=== PATIENT | male | born 1965 | race Caucasian/White ===

== ENCOUNTER 2017-02-15 13:10 | Emergency (ER) | payer OTHER ==
--- NOTE | 2017-02-15 13:36 | DIAGNOSTIC IMAGING REPORT ---
PROCEDURE: CT HEAD WITHOUT CONTRAST INDICATION: Dizziness and right-sided numbness. TECHNIQUE: Noncontrast axial images with sagittal and coronal reformations. COMPARISON: None. FINDINGS: Sulci, ventricular system, and brain parenchyma are normal. No evidence of acute intracranial process. Minor right ethmoid sinus disease. Mastoids are clear. IMPRESSION: 1. Negative non-enhanced head CT. 2. Findings discussed with Dr. Robles at 01:[address] Time
--- NOTE | 2017-02-15 13:36 | DIAGNOSTIC IMAGING REPORT ---
PROCEDURE: CT HEAD WITHOUT CONTRAST INDICATION: Dizziness and right-sided numbness. TECHNIQUE: Noncontrast axial images with sagittal and coronal reformations. COMPARISON: None. FINDINGS: Sulci, ventricular system, and brain parenchyma are normal. No evidence of acute intracranial process. Minor right ethmoid sinus disease. Mastoids are clear. IMPRESSION: 1. Negative non-enhanced head CT. 2. Findings discussed with Dr. Robles at 01:35 p.m.[facility] Time
--- NOTE | 2017-02-15 13:53 | DIAGNOSTIC IMAGING REPORT ---
PROCEDURE: XR CHEST 1 VIEW INDICATION: NEAR SYNCOPE TECHNIQUE: Portable AP view 01:42 p.m. COMPARISON: None. FINDINGS: Lungs are clear. Heart and mediastinum are normal. Thorax is normal. IMPRESSION: 1. Negative chest.
--- NOTE | 2017-02-15 15:18 | DIAGNOSTIC IMAGING REPORT ---
PROCEDURE: US BILATERAL CAROTID DOPPLER INDICATION: STROKE/CVA TECHNIQUE: Color Doppler duplex imaging of the carotid and vertebral vessels. COMPARISON: None. FINDINGS: Right carotid system: No significant stenosis visualized. The waveforms are normal. Left carotid system: No significant stenosis visualized. The waveforms are normal. Vertebral System: Antegrade vertebral artery flow bilaterally. Right common carotid artery peak systolic velocity 108 cm/second. Right internal carotid artery peak systolic velocity 62 cm/second. Right external carotid artery peak systolic velocity 144 cm/second. Right yaicbbjq-ty-brmxnc carotid artery ratio 0.57 Right vertebral artery peak systolic velocity 63 cm/second. Left common carotid artery peak systolic velocity 114 cm/second. Left internal carotid artery peak systolic velocity 89 cm/second. Left external carotid artery peak systolic velocity 131 cm/second. Left utevaedp-hp-csctba carotid artery ratio 0.78 Left vertebral artery peak systolic velocity 77 cm/second. IMPRESSION: 1. No hemodynamically significant stenosis in either carotid system. 2. Antegrade vertebral artery flow bilaterally. Velocity criteria are extrapolated from diameter data as defined by the Society of Radiologists in Ultrasound Consensus Conference, Radiology 2003; 229; 340-346.
--- NOTE | 2017-02-15 15:18 | DIAGNOSTIC IMAGING REPORT ---
PROCEDURE: US BILATERAL CAROTID DOPPLER INDICATION: STROKE/CVA TECHNIQUE: Color Doppler duplex imaging of the carotid and vertebral vessels. COMPARISON: None. FINDINGS: Right carotid system: No significant stenosis visualized. The waveforms are normal. Left carotid system: No significant stenosis visualized. The waveforms are normal. Vertebral System: Antegrade vertebral artery flow bilaterally. Right common carotid artery peak systolic velocity 108 cm/second. Right internal carotid artery peak systolic velocity 62 cm/second. Right external carotid artery peak systolic velocity 144 cm/second. Right taelkrux-kj-wesvqo carotid artery ratio 0.57 Right vertebral artery peak systolic velocity 63 cm/second. Left common carotid artery peak systolic velocity 114 cm/second. Left internal carotid artery peak systolic velocity 89 cm/second. Left external carotid artery peak systolic velocity 131 cm/second. Left glfksrld-ee-gjfroj carotid artery ratio 0.78 Left vertebral artery peak systolic velocity 77 cm/second. IMPRESSION: 1. No hemodynamically significant stenosis in either carotid system. 2. Antegrade vertebral artery flow bilaterally. Velocity criteria are extrapolated from diameter data as defined by the Society of Radiologists in Ultrasound Consensus Conference, Radiology 2003; 229; 340-346.
--- NOTE | 2017-02-15 15:59 | DIAGNOSTIC IMAGING REPORT ---
PROCEDURE: CTA HEAD AND NECK INDICATION: Dizziness and right-sided numbness. TECHNIQUE: 80 ml of Isovue 370 injected intravenously and axial images were obtained from the vertex through the upper mediastinum with 3D sagittal and coronal MIP reconstructions. COMPARISON: Head CT carotid duplex ultrasound 02/15/2017. FINDINGS: AORTIC ARCH: Normal. No evidence of atherosclerosis. RIGHT CAROTID SYSTEM: Normal. No evidence of atherosclerosis or stenosis. LEFT CAROTID SYSTEM: Normal. No evidence of atherosclerosis or stenosis. VERTEBROBASILAR SYSTEM: Normal. No evidence of atherosclerosis or stenosis. INTRACRANIAL ANTERIOR CIRCULATION: Normal. No evidence of aneurysm, stenosis or occlusion. INTRACRANIAL POSTERIOR CIRCULATION: Normal. No evidence of aneurysm, stenosis or occlusion. IMPRESSION: 1. Normal study. No evidence of atherosclerosis, stenosis, occlusion or aneurysm 2. Results discussed with Dr. Robles All CT scans at this facility use dose modulation, iterative reconstruction, and/or weight-based dosing when appropriate to reduce radiation dose to as low as reasonably achievable.
--- NOTE | 2017-02-15 16:11 | ED ORDER SUMMARY ---
..... Patient: CHERRIE MA OrderSheet [facility] VisitID: [id number] [address] [place] [address] 51y, M Registration Date/Time: 02/15/2017 ORDER SHEET Weight: 72.5 kg (stated) Allergies: None GENERAL ORDERS: CT Head wo Cont Urgent (13:02/15/2017 Darío Leblanc verbal order read back to Garret NOGUEIRA) (Ack 13:27 Anita) (13:40 MCook R.N.) Complaint Investigations Officer (Continuous) (13:02/15/2017 Garret NOGUEIRA) (13:40 MCook R.N.) Chest 1V Urgent (13:02/15/2017 Garret NOGUEIRA) (Ack 13:27 Anita) (13:40 MCook R.N.) Cardiac Panel Stat (13:02/15/2017 Garret NOGUEIRA) (Ack 13:27 Anita) (13:40 MCook R.N.) BNP Urgent (13:02/15/2017 Garret NOGUEIRA) (Ack 13:27 Anita) (13:40 MCook R.N.) D-Dimer Urgent (13:02/15/2017 Garret NOGUEIRA) (Ack 13:27 Ainta) (13:40 MCook R.N.) TSH Urgent (13:02/15/2017 Garret NOGUEIRA) (Ack 13:27 Anita) (13:40 MCook R.N.) UA-Culture if indicated Urgent (13:02/15/2017 Garret NOGUEIRA) (Ack 13:27 Anita) (15:28 MCook R.N.) Urine Drug Screen Urgent (13:02/15/2017 Garret NOGUEIRA) (Ack 13:27 Anita) (15:28 MCook R.N.) CRP Urgent (13:02/15/2017 Garret NOGUEIRA) (Ack 13:27 Anita) (13:40 MCook R.N.) ESR Urgent (13:25 02/15/2017 Garret NOGUEIRA) (Ack 13:27 BOZENAoerner) (13:40 MCook R.N.) PCT (Procalcitonin) Urgent (13:25 02/15/2017 Garret NOGUEIRA) (Ack 13:27 BOZENAoerner) (13:40 MCook R.N.) Oxygen (2 L/min) (NC) (13:25 02/15/2017 Garret NOGUEIRA) (13:40 MCook R.N.) Pulse oximeter (13:25 02/15/2017 Garret NOGUEIRA) (13:40 MCook R.N.) EKG - ER Stat (13:25 02/15/2017 Garret NOGUEIRA) (13:40 MCook R.N.) - (orthostatic BP/P) (13:36 02/15/2017 Garret NOGUEIRA) (14:01 MCook R.N.) US Carotid Doppler Bilat Urgent (14:00 02/15/2017 Garret NOGUEIRA) (Ack 14:11 BOZENAoerwaqar) (14:43 MCook R.N.) CTA Head w Cont (No) (normal. ) Urgent (15:12 02/15/2017 Garret NOGUEIRA) (Ack 15:23 KHoerner) (Cancelled: Wrong Wjvkqsy25:27 oerner) CTA Head and Neck (No) (N/A) Urgent (15:27 02/15/2017 BOZENAoerner verbal order read back to Garret NOGUEIRA) (Ack 15:29 MCook R.N.) (15:34 KHoerner) MEDICATION ORDERS: Aspirin PO 325 mg (Do not crush or chew, NOW) (16:13 02/15/2017 Garret NOGUEIRA) (Ack 16:16 MCook R.N.) (16:41 MCook R.N.) IV FLUIDS: IV Saline Lock (13:02/15/2017 Garret NOGUEIRA) (13:40 MCook R.N.) ORDER SHEET NOTES: [Electronically signed by Armond Campa R.N. (18:01 02/15/2017)] [Electronically signed by Corey Robles MD (11:40 02/16/2017)] [Electronically locked/signed by Armond Campa R.N. (18:01 02/15/2017)]
--- NOTE | 2017-02-15 16:11 | ED CLINICAL REPORT ---
Clinical Report - Physicians/Mid Levels [facility] [address] [place] [address] 02/15/2017 13:14 [id number] Time Seen: 13:24 Feb 15 2017. Arrived- By private vehicle. Historian- patient. CPT: ER phys charges level 5 plus (#[id number]). EKG interpretation (#[id number]). HISTORY OF PRESENT ILLNESS Chief Complaint: PARESTHESIA and IMPAIRED SPEECH. Right face and arm numbness. 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 This started today and is still present (better). The patient has had new onset of numbness of the right face (mild) and right arm (mild). No weakness or tingling. He has had difficulty with speech (wifer reported speech problem while he was on the phone with her.). At its maximum deficit described as mild. When seen in the E.D., it was almost gone. No dizziness or altered mental status. Usually is alert and oriented X3 and has normal mobility. Similar symptoms previously: Milder. Diagnosis: (Dizziness). Recent medical care: Not recently seen/assessed. REVIEW OF SYSTEMS No fever, headache, head injury, chest pain or difficulty breathing. No cough, sputum production, sore throat, abdominal pain or nausea. No diarrhea, black stools, difficulty with urination, skin rash or vomiting. No photophobia, nasal congestion, weakness, diabetic symptoms or easy bruising. No difficulty walking. All systems otherwise negative, except as recorded above. PAST HISTORY ( Corneal Foreign Body. Immunizations.). No history of stroke or seizure. Medications: None. Allergies: None. SOCIAL HISTORY Never smoker. No alcohol use or drug use. ADDITIONAL NOTES The nursing notes have been reviewed. PHYSICAL EXAM Vital Signs: 02/15/2017 13:24 BP: 173/78. HR: 95. RR: 18. O2 saturation: 95%. Temp: 97.7 F. Pain level now: 0/10. Appearance: Alert. No acute distress. Head: Head atraumatic. Eyes: Pupils equal, round and reactive to light. ENT: Normal ENT inspection. Airway intact. Pharynx normal. Neck: Normal inspection. Neck supple. No meningeal signs or carotid bruit. CVS: Normal heart rate and rhythm. Heart sounds normal. Pulses normal. No cardiac murmur. Respiratory: No respiratory distress. Breath sounds normal. Abdomen: Soft and nontender. Back: Normal inspection. Skin: Skin warm. Normal skin color. No rash. Extremities: Extremities exhibit normal ROM. No lower extremity edema. Neuro: Alert. Oriented X 3. Mood/affect normal. Speech normal. Cranial nerves normal (as tested). No cerebellar findings. No motor deficit. No sensory deficit. Reflexes normal. NIH Stroke Scale: score 0. Level of Consciousness: alert (0). LOC Questions: both (0). LOC Commands: both (0). Best gaze: normal (0). Visual field loss: none (0). Facial palsy: normal (0). Motor arm: no drift right arm (0) and no drift left arm (0). Motor leg: no drift right leg (0) and no drift left leg (0). Limb ataxia: none (0). Sensory loss: none (0). Aphasia: none (0). Dysarthria: normal (0). Extinction and inattention: none (0). LABS, X-RAYS, AND EKG EKG: Normal EKG. CT Head: No acute disease. Laboratory Tests: UA-Culture if indicated: (ANDRIA: 02/15/2017 15:20) ( MsgRcvd 02/15/2017 15:36) Final results Test Result Flag Units (Reference) URINE COLOR YELLOW URINE APPEARANCE CLEAR URINE GLUCOSE NEGATIVE (NEGATIVE) URINE BILIRUBIN NEGATIVE (NEGATIVE) URINE KETONE 1+ (NEGATIVE) URINE SPECIFIC GRAVITY <= 1.005 L (1.010-1.030) URINE PH 6.0 (5.0-8.0) URINE PROTEIN NEGATIVE (NEGATIVE) URINE UROBILINOGEN 0.2 EU/dL (0.2-1.0) URINE NITRITE NEGATIVE (NEGATIVE) URINE BLOOD NEGATIVE (NEGATIVE) URINE LEUK ESTERASE NEGATIVE (NEGATIVE) URINE RBC NONE SEEN rbc/hpf (0-1) URINE WBC NONE SEEN wbc/hpf (0-1) URINE EPITHELIAL CELLS NONE SEEN EPI/hpf (0-5) URINE BACTERIA NONE SEEN (NONE SEEN) URINE COMMENT CULT NOT INDICATED URINE CULTURES ARE SET-UP BASED ON THE FOLLOWING CRITERIA:POSITIVE NITRITEPOSITIVE LEUKOCYTE ESTERASEGREATER THAN 10 WHITE BLOOD CELLSMODERATE (2+) OR GREATER BACTERIA CBC w Diff: (ANDRIA: 02/15/2017 13:20) ( [facility]57[facility] Final results Test Result Flag Units (Reference) WHITE BLOOD COUNT 9.6 K/uL (4.5-11.5) RED BLOOD COUNT 5.01 M/uL (4.50-5.90) HEMOGLOBIN 15.1 gm/dL (13.5-17.5) HEMATOCRIT 44.6 % (41.0-53.0) MEAN CELL VOLUME 89 fL (80-100) MEAN CORPUSCULAR HGB 30 pg (26-34) MEAN CORPUSCULAR HGB CONC 34 g/dL (31-37) RED CELL DISTRIBUTION WIDTH 13.1 % (11.6-14.8) PLATELET COUNT 281 K/uL (150-400) NEUTROPHIL % 58.8 % (50-75) LYMPH % 32.2 % (25-40) MONO % 7.1 % (3-14) EOSINOPHIL % 1.4 % (0-4) BASOPHIL % 0.5 % (0-2) SED RATE WESTERGREN 1 mm/hr (0-20) [id number]: (ANDRIA: 02/15/2017 13:20) ( [facility] 02/15/2017 13:51) Final results Test Result Flag Units (Reference) D-DIMER QUANTITATIVE < 0.27 L ug/mLFEU (0.27-0.52) The primary value of this quantitative assay relates toits negative predictive value (i.e. exclusion) of pulmonaryembolism/deep vein thrombosis/DIC.Elevated levels of d-dimer may also occur with:, age, cancer, inflammation, liver disease,post-op, infection, hematoma, coronary disease, peripheralarteriopathy, bleeding disorders and thrombolytic treatment.Results should be correlated with other clinical andradiological data.Testing Methodology: Latex Immunoassay Urine Drug Screen: (ANDRIA: 02/15/2017 15:20) ( [facility] 02/15/2017 15:39) Final results Test Result Flag Units (Reference) AMPHETAMINE/METHAMPHETAMINE NEGATIVE (NEGATIVE) BARBITURATE NEGATIVE (NEGATIVE) BENZODIAZEPINE NEGATIVE (NEGATIVE) CANNABINOID NEGATIVE (NEGATIVE) COCAINE NEGATIVE (NEGATIVE) ECSTASY NEGATIVE (NEGATIVE) METHADONE NEGATIVE (NEGATIVE) OPIATE NEGATIVE (NEGATIVE) The urine drug screen is a qualitative screening test fordrug overdose and abuse. All screen results should beconsidered as presumptive.Drugs screened for are as follows:BenzodiazepinesCocaineAmphetamines/MetamphetaminesTHC (Tetrahydrocannabinol)OpiatesBarbituratesEcstasyMethadonePositive results are unconfirmed. For confirmation, notifythe lab for the specimen to be sent to the reference lab.All confirmations must be performed by a differentmethodology.The ingestion of natural herbal and plant productscontaining Ephedra/Ephedra metabolites can produce in urineone or more substances capable of cross reacting withamphetamine/methamphetamine immunoassays. These testsprovide a preliminary result only. A more specificalternative chemical method must be used to obtain aconfirmed analytical result. BNP: (ANDRIA: 02/15/2017 13:20) ( [facility] 02/15/2017 13:58) Final results Test Result Flag Units (Reference) B-TYPE NATRIURETIC PEPTIDE 19.3 pg/ml (5-100) [id number]: (ANDRIA: 02/15/2017 13:20) ( [facility] 02/15/2017 14:07) Final results Test Result Flag Units (Reference) PROCALCITONIN <0.5 ng/mL (0-0.5) PCT Concentration: Interpretation : Risk/option for action PCT <=0.5 ng/mL : Systemic : Low risk forinfection(sepsis): progression to severeis not likely. : systemic infection.Local bacterial : CAUTION-PCT levelsinfection is : below 0.5 ng/mL do notpossible. : exclude an infection,because localizedinfections (withoutsystemic signs) may beassociated with suchlow levels. If PCT ismeasured very earlyafter a bacterialchallenge (usually <6hours), these valuesmay still be low. Inthis case PCT shouldbe re-assessed 6-24hours later. PCT >0.5 and : Systemic infection: Moderate risk for<= 2 ng/mL : (sepsis) is : progression to severepossible, but : systemic infection.other conditions : The patient should beare known to : closely monitoredelevate PCT. : both clinically andby re-assessing PCTwithin 6-24 hours. PCT > 2 ng/mL : Systemic infection: High risk for(sepsis) is likely: progression to severeunless other : systemic infection.causes are known. : PCT >= 10 ng/mL : Important systemic: High likelihood ofinflammatory : severe sepsis orresponse, almost : septic shock.exclusively due to:severe bacterial :sepsis or septic :shock. : CHEM 13 PANEL: (ANDRIA: 02/15/2017 13:20) ( MsgRcvd 02/15/2017 14:39) Final results Test Result Flag Units (Reference) GLUCOSE 125 H mg/dL (70-110) BUN 14 mg/dL (7-18) CREATININE 1.1 mg/dL (0.6-1.3) Estimated GFR >60 mL/min Estimated GFR- >60 mL/min Note: Persistent reduction over 3 months in eGFR<60 mL/min/1.73 m2 defines CKD. Patients with eGFR values>=60 mL/min/1.73 m2 may also have CKD if evidence ofpersistent proteinuria. Additional information may be foundat www.kidney.org. SODIUM 135 L mmol/L (136-145) POTASSIUM 3.2 L mmol/L (3.5-5.1) CHLORIDE 100 mmol/L (98-107) CARBON DIOXIDE 24 mmol/L (21-32) CALCIUM 8.5 mg/dL (8.5-10.1) TOTAL PROTEIN 7.2 g/dL (6.4-8.2) ALBUMIN 4.1 g/dL (3.3-5.0) BILIRUBIN, TOTAL 1.0 mg/dL (0.0-1.0) ALKALINE PHOSPHATASE 63 U/L (46-116) AST (SGOT) 23 U/L (15-37) ALT (SGPT) 30 U/L (12-78) MAGNESIUM 1.7 L mg/dL (1.8-2.4) CPK 175 U/L (24-260) TROPONIN I <0.05 ng/mL (0.00-1.5) TROPONIN REFERENCE RANGE:<0.1 NEGATIVE0.1-1.5 INDETERMINANT>1.5 POSITIVE THYROID STIMULATING HORMONE 2.541 uIU/mL (0.34-3.74) C-REACTIVE PROTEIN < 0.2 mg/dL (0.0-0.9) . Note - Tests: (Carotid doppler negative. CTA head and neck: Normal exam .). PROGRESS AND PROCEDURES Course of Care: NO neurological deficit on exam and patient states that symptoms have resolved. agrees. NO symptoms while in the ER. Total duration of symptoms was estimated at 2 hours. Pt has no hx of similar symptoms in the past. Discussed probability of recurrent TIA/CVA. Pt will start an 325 mg aspirin per day. Wants to follow up as out patient for further w/u. Patient/family counseled. Disposition: Discharged. Condition: stable and improved. 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 INSTRUCTIONS No strenuous activity. Rest. Do not work for three days until better. (Aspirin 325 mg a day.). Warnings: Further evaluation is necessary. GENERAL WARNINGS: Return or contact your physician immediately if your condition worsens or changes unexpectedly, if not improving as expected, or if other problems arise. Follow-up: Return to the emergency department If symptoms return. Follow up with your doctor in two days. Call for the next available appointment. Understanding of the discharge instructions verbalized by patient and family. Discharge instructions reviewed with and understanding was verbalized by spouse. (Electronically signed by Corey Robles MD 02/16/2017 11:40)
--- NOTE | 2017-02-15 16:11 | ED NURSING NOTES ---
Clinical Report - Nurses [facility] [address] [place] [address] 02/15/2017 13:14 [id number] Triage time 13:Feb 15 2017. Acuity: LEVEL 2. Chief Complaint: DIZZINESS. Alert. No acute distress. MACARIO COMA SCORE: Macario Coma Scale: 15- eyes open spontaneously (4); best verbal response- oriented x 4 (5); best motor response- obeys commands (6). --13:27 Armond Campa R.N. 13:24 02/15/17. BP: 173/78. HR: 95. RR: 18. O2 saturation: 95% on room air. Temp: 97.7 F. Pain level now: 0/10. --13:27 Armond Campa R.N. Weight: 72.5 kg stated. Height/Length: 73 inches Per Patient. BMI: 21.1. --13:23 Armond Campa R.N. Medications None. --13:26 Armond Campa R.N. Allergies None. --13:27 Armond Campa R.N. History Arrived by private vehicle. Historian: patient and family. Accompanied by family. This started just prior to arrival and today. Treatment SAUTE CHEF: None. PAST MEDICAL HX: Immunizations: status is unknown. SOCIAL HX: Never smoker. No alcohol use or drug use. No infectious disease exposure. FALL RISK ASSESSMENT: Fall risk assessment completed. No fall risk identified. NUTRITIONAL RISK ASSESSMENT: The nutritional risk assessment revealed no deficiencies. FUNCTIONAL ASSESSMENT: Functional assessment: no impairments noted. LEARNING NEEDS ASSESSMENT: The learning needs assessment revealed no barriers. SKIN INTEGRITY ASSESSMENT: Skin integrity risk assessment completed. No skin integrity risk identified. --13:27 Armond Campa R.N. ( Pt was at work this afternoon when he started feeling unwell, describes his symptoms as numbness and tingling to R face and arm, states Pt had slurred speech.). --14:09 Armond Campa R.N. PROBLEMS: Corneal Foreign Body. Immunizations. --13:27 Armond Campa R.N. Interventions ID band on patient. To treatment room. --13:27 Armond Campa R.N. PHYSICAL ASSESSMENT Ambulatory to room. GENERAL / NEURO / PSYCH: Oriented X 4. Appears in no acute distress. Alert. Speech within normal limits. HEENT: No facial asymmetry noted. Pupils equal, round and reactive to light. RESPIRATORY: Respirations not labored. CVS: Normal sinus rhythm noted. Capillary refill less than 2 seconds. GI / : Abdomen soft and nontender. SKIN: Skin is warm and dry. --14:09 Armond Campa R.N. NURSING PROGRESS NOTES The plan of care for this patient has been created. Monitoring of patient in place. Patient gowned. Head of bed elevated. Reassurance given. Patient transported to CT by stretcher with tech. (13:34 Feb 15 2017). Two patient identifiers checked. Call light placed in reach. Side rails up x 2. Bed placed in lowest position. Patient ready for evaluation- ED physician notified. --13:39 Armond Campa R.N. Patient ID band checked for patient name and birthdate: patient confirmed. Blood samples drawn from the peripheral IV site by nurse per protocol ; labeled in presence of the patient and sent to lab: rainbow set. Line flushed with 10 mL normal saline post blood draw. Finger stick glucose: 123; performed by nurse. Portable chest x-ray performed and shown to the ED physician. --13:40 Armond Campa R.N. 13:30 02/15/2017 Site #1 started via IV in the right antecubital space with an 18g angiocath, with aseptic technique and good blood return; one attempt. Blood drawn: rainbow set. Saline lock flushed with saline. --13:40 Armond Campa R.N. 13:40 02/15/17. BP: 149/82. HR: 94. RR: 21. O2 saturation: 98% on room air. Pain level now: 0/10. --13:41 Armond Campa R.N. ( Pt returned from CT, CXR completed, spouse at bedside. Pt is a/o, cooperative, states the dizziness is not as severe, has mostly subsided.). --13:41 Armond Campa R.N. ( Explained Plan of Care to Pt and . They are very compliant, cooperative. Pt reports original symptoms have resolved, he denies needs, Dr. Robles updated on Pt's status, Carotid US ordered.). --14:02 Armond Campa R.N. 13:50 02/15/17. BP: 142/77 taken on the left arm, while lying. HR: 85. --14:03 Armond Campa R.N. 13:55 02/15/17. BP: 158/73 taken on the left arm, while sitting. HR: 91. --14:03 Armond Campa R.N. 14:03 02/15/17. BP: 128/77 taken on the left arm, while standing. HR: 95. --14:03 Armond Campa R.N. ( US at bedside, Pt c/o intermittent dizziness, spouse at bedside, monitoring VS.). --14:43 Armond Campa R.N. 14:42 02/15/17. BP: 135/69. HR: 81. RR: 14. O2 saturation: 97% on room air. Pain level now: 0/10. --14:43 Armond Campa R.N. late entry - 15:50 02/15/17. ( Pt has been resting comfortably, completed CTA, spouse at bedside waiting for eval post results.). --16:19 Armond Campa R.N. 16:41 02/15/2017 Aspirin PO Tablets 325 mg given. Allergies verified and confirmed 5 rights. --16:41 Armond Campa R.N. 16:41 02/15/2017 Site #1 removed upon discharge. Bandaid applied. --16:41 Armond Campa R.N. DISPOSITION / DISCHARGE 16:18 02/15/17. BP: 146/88. HR: 77. RR: 16. O2 saturation: 97% on room air. Pain level now: 0/10. --16:18 Armond Campa R.N. Departure time: 16:43 Feb 15 2017. Condition at departure: improved and stable. The goals identified in the patient's plan of care were met. No learning barriers present. Discharge instructions provided and reviewed with the patient and spouse. Reviewed medication(s) (Pt instructed to take ASA 325 mg daily). Reviewed referral to a primary care physician for followup (in 2 days). Patient and spouse verbalized understanding. Written instructions provided in Macedonian. The patient was discharged home and accompanied by spouse. He left the Emergency Department ambulatory and via private vehicle. Spouse driving. ( Pt dc'd in stable condition, VSS, ambulatory, denies dizziness or other neuro symptoms, Pt and spouse verbalized understanding of instructions, left ED in stable condition.). --16:43 Armond Campa R.N. 16:41 02/15/17. Temp: deferred. --16:43 Armond Campa R.N. Locked/Released at 02/15/2017 18:01 by Armond Campa R.N.
--- NOTE | 2017-02-15 16:11 | ED CLINICAL REPORT ---
Clinical Report - Physicians/Mid Levels [facility] [address] [place] [address] 02/15/2017 13:14 [id number] Time Seen: 13:24 Feb 15 2017. Arrived- By private vehicle. Historian- patient. CPT: ER phys charges level 5 plus (#[id number]). EKG interpretation (#[id number]). HISTORY OF PRESENT ILLNESS Chief Complaint: PARESTHESIA and IMPAIRED SPEECH. Right face and arm numbness. 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 This started today and is still present (better). The patient has had new onset of numbness of the right face (mild) and right arm (mild). No weakness or tingling. He has had difficulty with speech (wifer reported speech problem while he was on the phone with her.). At its maximum deficit described as mild. When seen in the E.D., it was almost gone. No dizziness or altered mental status. Usually is alert and oriented X3 and has normal mobility. Similar symptoms previously: Milder. Diagnosis: (Dizziness). Recent medical care: Not recently seen/assessed. REVIEW OF SYSTEMS No fever, headache, head injury, chest pain or difficulty breathing. No cough, sputum production, sore throat, abdominal pain or nausea. No diarrhea, black stools, difficulty with urination, skin rash or vomiting. No photophobia, nasal congestion, weakness, diabetic symptoms or easy bruising. No difficulty walking. All systems otherwise negative, except as recorded above. PAST HISTORY ( Corneal Foreign Body. Immunizations.). No history of stroke or seizure. Medications: None. Allergies: None. SOCIAL HISTORY Never smoker. No alcohol use or drug use. ADDITIONAL NOTES The nursing notes have been reviewed. PHYSICAL EXAM Vital Signs: 02/15/2017 13:24 BP: 173/78. HR: 95. RR: 18. O2 saturation: 95%. Temp: 97.7 F. Pain level now: 0/10. Appearance: Alert. No acute distress. Head: Head atraumatic. Eyes: Pupils equal, round and reactive to light. ENT: Normal ENT inspection. Airway intact. Pharynx normal. Neck: Normal inspection. Neck supple. No meningeal signs or carotid bruit. CVS: Normal heart rate and rhythm. Heart sounds normal. Pulses normal. No cardiac murmur. Respiratory: No respiratory distress. Breath sounds normal. Abdomen: Soft and nontender. Back: Normal inspection. Skin: Skin warm. Normal skin color. No rash. Extremities: Extremities exhibit normal ROM. No lower extremity edema. Neuro: Alert. Oriented X 3. Mood/affect normal. Speech normal. Cranial nerves normal (as tested). No cerebellar findings. No motor deficit. No sensory deficit. Reflexes normal. NIH Stroke Scale: score 0. Level of Consciousness: alert (0). LOC Questions: both (0). LOC Commands: both (0). Best gaze: normal (0). Visual field loss: none (0). Facial palsy: normal (0). Motor arm: no drift right arm (0) and no drift left arm (0). Motor leg: no drift right leg (0) and no drift left leg (0). Limb ataxia: none (0). Sensory loss: none (0). Aphasia: none (0). Dysarthria: normal (0). Extinction and inattention: none (0). LABS, X-RAYS, AND EKG EKG: Normal EKG. CT Head: No acute disease. Laboratory Tests: UA-Culture if indicated: (ANDRIA: 02/15/2017 15:20) ( MsgRcvd 02/15/2017 15:36) Final results Test Result Flag Units (Reference) URINE COLOR YELLOW URINE APPEARANCE CLEAR URINE GLUCOSE NEGATIVE (NEGATIVE) URINE BILIRUBIN NEGATIVE (NEGATIVE) URINE KETONE 1+ (NEGATIVE) URINE SPECIFIC GRAVITY <= 1.005 L (1.010-1.030) URINE PH 6.0 (5.0-8.0) URINE PROTEIN NEGATIVE (NEGATIVE) URINE UROBILINOGEN 0.2 EU/dL (0.2-1.0) URINE NITRITE NEGATIVE (NEGATIVE) URINE BLOOD NEGATIVE (NEGATIVE) URINE LEUK ESTERASE NEGATIVE (NEGATIVE) URINE RBC NONE SEEN rbc/hpf (0-1) URINE WBC NONE SEEN wbc/hpf (0-1) URINE EPITHELIAL CELLS NONE SEEN EPI/hpf (0-5) URINE BACTERIA NONE SEEN (NONE SEEN) URINE COMMENT CULT NOT INDICATED URINE CULTURES ARE SET-UP BASED ON THE FOLLOWING CRITERIA:POSITIVE NITRITEPOSITIVE LEUKOCYTE ESTERASEGREATER THAN 10 WHITE BLOOD CELLSMODERATE (2+) OR GREATER BACTERIA CBC w Diff: (ANDRIA: 02/15/2017 13:20) ( [facility] 02/15/2017 13:57) Final results Test Result Flag Units (Reference) WHITE BLOOD COUNT 9.6 K/uL (4.5-11.5) RED BLOOD COUNT 5.01 M/uL (4.50-5.90) HEMOGLOBIN 15.1 gm/dL (13.5-17.5) HEMATOCRIT 44.6 % (41.0-53.0) MEAN CELL VOLUME 89 fL (80-100) MEAN CORPUSCULAR HGB 30 pg (26-34) MEAN CORPUSCULAR HGB CONC 34 g/dL (31-37) RED CELL DISTRIBUTION WIDTH 13.1 % (11.6-14.8) PLATELET COUNT 281 K/uL (150-400) NEUTROPHIL % 58.8 % (50-75) LYMPH % 32.2 % (25-40) MONO % 7.1 % (3-14) EOSINOPHIL % 1.4 % (0-4) BASOPHIL % 0.5 % (0-2) SED RATE WESTERGREN 1 mm/hr (0-20) [id number]: (ANDRIA: 02/15/2017 13:20) ( [facility] 02/15/2017 13:51) Final results Test Result Flag Units (Reference) D-DIMER QUANTITATIVE < 0.27 L ug/mLFEU (0.27-0.52) The primary value of this quantitative assay relates toits negative predictive value (i.e. exclusion) of pulmonaryembolism/deep vein thrombosis/DIC.Elevated levels of d-dimer may also occur with:, age, cancer, inflammation, liver disease,post-op, infection, hematoma, coronary disease, peripheralarteriopathy, bleeding disorders and thrombolytic treatment.Results should be correlated with other clinical andradiological data.Testing Methodology: Latex Immunoassay Urine Drug Screen: (ANDRIA: 02/15/2017 15:20) ( [facility] 02/15/2017 15:39) Final results Test Result Flag Units (Reference) AMPHETAMINE/METHAMPHETAMINE NEGATIVE (NEGATIVE) BARBITURATE NEGATIVE (NEGATIVE) BENZODIAZEPINE NEGATIVE (NEGATIVE) CANNABINOID NEGATIVE (NEGATIVE) COCAINE NEGATIVE (NEGATIVE) ECSTASY NEGATIVE (NEGATIVE) METHADONE NEGATIVE (NEGATIVE) OPIATE NEGATIVE (NEGATIVE) The urine drug screen is a qualitative screening test fordrug overdose and abuse. All screen results should beconsidered as presumptive.Drugs screened for are as follows:BenzodiazepinesCocaineAmphetamines/MetamphetaminesTHC (Tetrahydrocannabinol)OpiatesBarbituratesEcstasyMethadonePositive results are unconfirmed. For confirmation, notifythe lab for the specimen to be sent to the reference lab.All confirmations must be performed by a differentmethodology.The ingestion of natural herbal and plant productscontaining Ephedra/Ephedra metabolites can produce in urineone or more substances capable of cross reacting withamphetamine/methamphetamine immunoassays. These testsprovide a preliminary result only. A more specificalternative chemical method must be used to obtain aconfirmed analytical result. BNP: (ANDRIA: 02/15/2017 13:20) ( [facility] 02/15/2017 13:58) Final results Test Result Flag Units (Reference) B-TYPE NATRIURETIC PEPTIDE 19.3 pg/ml (5-100) [id number]: (ANDRIA: 02/15/2017 13:20) ( [facility] 02/15/2017 14:07) Final results Test Result Flag Units (Reference) PROCALCITONIN <0.5 ng/mL (0-0.5) PCT Concentration: Interpretation : Risk/option for action PCT <=0.5 ng/mL : Systemic : Low risk forinfection(sepsis): progression to severeis not likely. : systemic infection.Local bacterial : CAUTION-PCT levelsinfection is : below 0.5 ng/mL do notpossible. : exclude an infection,because localizedinfections (withoutsystemic signs) may beassociated with suchlow levels. If PCT ismeasured very earlyafter a bacterialchallenge (usually <6hours), these valuesmay still be low. Inthis case PCT shouldbe re-assessed 6-24hours later. PCT >0.5 and : Systemic infection: Moderate risk for<= 2 ng/mL : (sepsis) is : progression to severepossible, but : systemic infection.other conditions : The patient should beare known to : closely monitoredelevate PCT. : both clinically andby re-assessing PCTwithin 6-24 hours. PCT > 2 ng/mL : Systemic infection: High risk for(sepsis) is likely: progression to severeunless other : systemic infection.causes are known. : PCT >= 10 ng/mL : Important systemic: High likelihood ofinflammatory : severe sepsis orresponse, almost : septic shock.exclusively due to:severe bacterial :sepsis or septic :shock. : CHEM 13 PANEL: (ANDRIA: 02/15/2017 13:20) ( MsgRcvd 02/15/2017 14:39) Final results Test Result Flag Units (Reference) GLUCOSE 125 H mg/dL (70-110) BUN 14 mg/dL (7-18) CREATININE 1.1 mg/dL (0.6-1.3) Estimated GFR >60 mL/min Estimated GFR- >60 mL/min Note: Persistent reduction over 3 months in eGFR<60 mL/min/1.73 m2 defines CKD. Patients with eGFR values>=60 mL/min/1.73 m2 may also have CKD if evidence ofpersistent proteinuria. Additional information may be foundat www.kidney.org. SODIUM 135 L mmol/L (136-145) POTASSIUM 3.2 L mmol/L (3.5-5.1) CHLORIDE 100 mmol/L (98-107) CARBON DIOXIDE 24 mmol/L (21-32) CALCIUM 8.5 mg/dL (8.5-10.1) TOTAL PROTEIN 7.2 g/dL (6.4-8.2) ALBUMIN 4.1 g/dL (3.3-5.0) BILIRUBIN, TOTAL 1.0 mg/dL (0.0-1.0) ALKALINE PHOSPHATASE 63 U/L (46-116) AST (SGOT) 23 U/L (15-37) ALT (SGPT) 30 U/L (12-78) MAGNESIUM 1.7 L mg/dL (1.8-2.4) CPK 175 U/L (24-260) TROPONIN I <0.05 ng/mL (0.00-1.5) TROPONIN REFERENCE RANGE:<0.1 NEGATIVE0.1-1.5 INDETERMINANT>1.5 POSITIVE THYROID STIMULATING HORMONE 2.541 uIU/mL (0.34-3.74) C-REACTIVE PROTEIN < 0.2 mg/dL (0.0-0.9) . Note - Tests: (Carotid doppler negative. CTA head and neck: Normal exam .). PROGRESS AND PROCEDURES Course of Care: NO neurological deficit on exam and patient states that symptoms have resolved. agrees. NO symptoms while in the ER. Total duration of symptoms was estimated at 2 hours. Pt has no hx of similar symptoms in the past. Discussed probability of recurrent TIA/CVA. Pt will start an 325 mg aspirin per day. Wants to follow up as out patient for further w/u. Patient/family counseled. Disposition: Discharged. Condition: stable and improved. 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 INSTRUCTIONS No strenuous activity. Rest. Do not work for three days until better. (Aspirin 325 mg a day.). Warnings: Further evaluation is necessary. GENERAL WARNINGS: Return or contact your physician immediately if your condition worsens or changes unexpectedly, if not improving as expected, or if other problems arise. Follow-up: Return to the emergency department If symptoms return. Follow up with your doctor in two days. Call for the next available appointment. Understanding of the discharge instructions verbalized by patient and family. Discharge instructions reviewed with and understanding was verbalized by spouse. (Electronically signed by Corey Robles MD 02/16/2017 11:40)
--- NOTE | 2017-02-15 16:11 | ED ORDER SUMMARY ---
..... Patient: CHERRIE MA OrderSheet [facility] VisitID: [id number] [address] [place] [address] 51y, M Registration Date/Time: 02/15/2017 ORDER SHEET Weight: 72.5 kg (stated) Allergies: None GENERAL ORDERS: CT Head wo Cont Urgent (13:02/15/2017 Darío Leblanc verbal order read back to Garret NOGUEIRA) (Ack 13:27 Anita) (13:40 MCook R.N.) Balance Wheel Screw Hole Tapper (Continuous) (13:02/15/2017 Garret NOGUEIRA) (13:40 MCook R.N.) Chest 1V Urgent (13:02/15/2017 Garret NOGUEIRA) (Ack 13:27 Anita) (13:40 MCook R.N.) Cardiac Panel Stat (13:02/15/2017 Garret NOGUEIRA) (Ack 13:27 Anita) (13:40 MCook R.N.) BNP Urgent (13:02/15/2017 Garret NOGUEIRA) (Ack 13:27 Anita) (13:40 MCook R.N.) D-Dimer Urgent (13:02/15/2017 Garret NOGUEIRA) (Ack 13:27 Anita) (13:40 MCook R.N.) TSH Urgent (13:02/15/2017 Garret NOGUEIRA) (Ack 13:27 Anita) (13:40 MCook R.N.) UA-Culture if indicated Urgent (13:02/15/2017 Garret NOGUEIRA) (Ack 13:27 Anita) (15:28 MCook R.N.) Urine Drug Screen Urgent (13:02/15/2017 Garret NOGUEIRA) (Ack 13:27 Anita) (15:28 MCook R.N.) CRP Urgent (13:02/15/2017 Garret NOGUEIRA) (Ack 13:27 Anita) (13:40 MCook R.N.) ESR Urgent (13:25 02/15/2017 Garret NOGUEIRA) (Ack 13:27 BOZENAoerner) (13:40 MCook R.N.) PCT (Procalcitonin) Urgent (13:25 02/15/2017 Garret NOGUEIRA) (Ack 13:27 BOZENAoerner) (13:40 MCook R.N.) Oxygen (2 L/min) (NC) (13:25 02/15/2017 Garret NOGUEIRA) (13:40 MCook R.N.) Pulse oximeter (13:25 02/15/2017 Garret NOGUEIRA) (13:40 MCook R.N.) EKG - ER Stat (13:25 02/15/2017 Garret NOGUEIRA) (13:40 MCook R.N.) - (orthostatic BP/P) (13:36 02/15/2017 Garret NOGUEIRA) (14:01 MCook R.N.) US Carotid Doppler Bilat Urgent (14:00 02/15/2017 Garret NOGUEIRA) (Ack 14:11 BOZENAoerwaqar) (14:43 MCook R.N.) CTA Head w Cont (No) (normal. ) Urgent (15:12 02/15/2017 Garret NOGUEIRA) (Ack 15:23 KHoerner) (Cancelled: Wrong [id number] oerner) CTA Head and Neck (No) (N/A) Urgent (15:27 02/15/2017 BOZENAoerner verbal order read back to Garret NOGUEIRA) (Ack 15:29 MCook R.N.) (15:34 KHoerner) MEDICATION ORDERS: Aspirin PO 325 mg (Do not crush or chew, NOW) (16:13 02/15/2017 Garret NOGUEIRA) (Ack 16:16 MCook R.N.) (16:41 MCook R.N.) IV FLUIDS: IV Saline Lock (13:02/15/2017 Garret NOGUEIRA) (13:40 MCook R.N.) ORDER SHEET NOTES: [Electronically signed by Armond Campa R.N. (18:01 02/15/2017)] [Electronically signed by Corey Robles MD (11:40 02/16/2017)] [Electronically locked/signed by Armond Campa R.N. (18:01 02/15/2017)]
--- NOTE | 2017-02-16 11:40 | ED MAR SUMMARY ---
..... Medication Administration Record [facility] [address] [place] [address] Patient: CHERRIE MA Visit ID: [id number] 51y, M Weight: 72.5 kg Height/Length: 73 in BMI: 21.1 ALLERGIES: None Given 16:41 02/15/2017 Armond Campa R.N. Medication Administered: ASPIRIN [PO], Dose: 325 mg Tablets PO. Medication Ordered: Aspirin PO 325 mg (Do not crush or chew, NOW).
--- NOTE | 2017-02-16 11:40 | ED MAR SUMMARY ---
..... Medication Administration Record [facility] [address] [place] [address] Patient: CHERRIE MA Visit ID: [id number] 51y, M Weight: 72.5 kg Height/Length: 73 in BMI: 21.1 ALLERGIES: None Given 16:41 02/15/2017 Armond Campa R.N. Medication Administered: ASPIRIN [PO], Dose: 325 mg Tablets PO. Medication Ordered: Aspirin PO 325 mg (Do not crush or chew, NOW).
--- NOTE | 2017-02-16 11:40 | ED MED RECONCILIATION SUMMARY ---
Patient: CHERRIE MA Medication Reconciliation Report [facility] VisitID: [id number] [address] [place] [address] 51y, M Registration Date/Time: 02/15/2017 Weight: 72.5 kg Height/Length: 73 in. BMI: 21.1 ALLERGIES: None The patient's Home Medications are listed below: NONE. The source(s) of the original Home Medication information: Not obtained. The following Medications were given to the patient in the Emergency Department: Aspirin [PO] PO 325 mg, administered: 02/15/2017 4:41:00 PM The following Medications were prescribed to the patient: None.
--- NOTE | 2017-02-16 11:40 | ED MED RECONCILIATION SUMMARY ---
Patient: CHERRIE MA Medication Reconciliation Report [facility] VisitID: [id number] [address] [place] [address] 51y, M Registration Date/Time: 02/15/2017 Weight: 72.5 kg Height/Length: 73 in. BMI: 21.1 ALLERGIES: None The patient's Home Medications are listed below: NONE. The source(s) of the original Home Medication information: Not obtained. The following Medications were given to the patient in the Emergency Department: Aspirin [PO] PO 325 mg, administered: 02/15/2017 4:41:00 PM The following Medications were prescribed to the patient: None.
--- NOTE | 2017-02-16 11:40 | ED DISCHARGE INSTRUCTIONS ---
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 INSTRUCTIONS No strenuous activity. Rest. Do not work for three days until better. (Aspirin 325 mg a day.). Warnings: Further evaluation is necessary. GENERAL WARNINGS: Return or contact your physician immediately if your condition worsens or changes unexpectedly, if not improving as expected, or if other problems arise. Follow-up: Return to the emergency department If symptoms return. Follow up with your doctor in two days. Call for the next available appointment. Understanding of the discharge instructions verbalized by patient and family. Discharge instructions reviewed with and understanding was verbalized by spouse. ADDITIONAL INFORMATION TIA: Transient Ischemic Attack The spell you had today is called a TIA (mini-stroke). It is caused by a temporary decrease or blockage of blood flow to a part of your brain. A TIA often happens when a blood clot travels to a blood vessel in the brain. The clot reduces or blocks blood flow, resulting in the symptoms you had. After a short while, the clot dissolves, blood flows again, and the symptoms disappear. Persons with atherosclerosis (hardening of the arteries) or atrial fibrillation (a type of irregular heartbeat) are at higher risk of TIA. TIA causes temporary symptoms similar to a stroke, but lasts less than 24 hours. A full stroke causes symptoms that last more than 24 hours and may be permanent. Once you have had a TIA, you are at risk of having a full stroke. Therefore, be sure to follow up with your doctor for further evaluation. This may include an ultrasound of the arteries in your neck and an evaluation of your heart. If problems are found, your doctor will recommend treatment with medications and/or procedures. Medications to reduce your chance of having another TIA (and stroke) include those that prevent blood clots, such as antiplatelet medicines and anticoagulant medicines. Home care The following guidelines will help you take care of yourself at home: If all of your symptoms have resolved, there is nothing special that you need to do today. Rest at home and avoid exertion for the rest of the day. If your doctor has prescribed antiplatelet medication, take it as directed. Other ways to reduce your risk of a stroke Hypertension, diabetes, elevated cholesterol, and smoking are risk factors for stroke and heart disease. These can be controlled through medications, diet and lifestyle changes. Taking daily aspirin (or similar medications) is a simple but important part of preventing stroke. Follow-up care Call your doctor for an appointment in the next few days for another evaluation. Additional tests may be needed. If you had an X-ray, CT scan, MRI scan, or ECG (electrocardiogram), it will be reviewed by a specialist. Youll be notified of any new findings that will affect your care. When to call 911 or emergency services Get immediate medical attention if any of the following occur: Any of your TIA symptoms return New problems with speech, vision, walking, or weakness or numbeness of the face or on one side of the body Severe headache, fainting spell, dizziness, or seizure You have been given the following additional information: TIA: Transient Ischemic Attack No strenuous activity. Rest. Do not work for three days until better. (Electronically signed by Corey Robles MD 02/16/2017 11:40)
== END 2017-02-15 16:43 | disposition home or self-care (01) ==
LOC: ED SRH 13:10
DX: G45.9 Transient cerebral ischemic attack, unspecified (principal); G45.1 Carotid artery syndrome (hemispheric); G46.0 Middle cerebral artery syndrome
CPT/HCPCS: 90004; 90098; 90100; 90616; 91320; 91556; 91585; 92610; 92720; 92760; 92761; 92762; 92763; 92764; 92765; 92766; 92767; 93004; 93140; 95059; 95150